=== PATIENT | male | born 1975 | race Caucasian/White ===

== ENCOUNTER 2019-07-30 18:59 | Emergency (ER) | payer BC, SELFPAY ==
[2019-07-30 19:06] VITALS: BP 125/72; PULSE 101; RESP 18; TEMP 37; O2SAT 98
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
--- NOTE | 2019-07-30 20:26 | DI.RAD_ITS ---
EXAM: XR ANKLE RT COMPLETE INDICATION: lateral ankle pain and swelling s/p fall. COMPARISON: No exams were available for comparison TECHNIQUE: 2D digital imaging was performed. FINDINGS: Three views were obtained. There is question of slight widening of the ankle mortise on the AP view. Mortise view is unremarkable. No evidence of fracture. IMPRESSION:
--- NOTE | 2019-07-30 20:50 | DI.VRAD_ITS ---
PROCEDURE INFORMATION: Exam: XR Right Ankle Exam date and time: 07/30/2019 8:24 PM Clinical history: 43 years old, male; Injury or trauma; Fall; Initial encounter; Sprain or strain and swelling (edema); Ankle; Right; Bilateral TECHNIQUE: Imaging protocol: XR Right ankle. Views: 3 or more views. COMPARISON: No relevant prior studies available. FINDINGS: Bones/joints: No evidence for acute fracture or dislocation. Soft tissues: Soft tissue swelling right ankle. IMPRESSION: 1. Marked soft tissue swelling. 2. No evidence for acute bony injury. Dictated and Authenticated by: Anca Avalos MD. Ordering:DANILO Ambriz MD
== END 2019-07-30 20:47 | disposition home or self-care (01) ==
PROVIDERS: Emergency Provider Physician Assistant
DX: S93.401A Sprain of unspecified ligament of right ankle, initial encounter (principal); V17.0XXA Pedal cycle driver injured in collision with fixed or stationary object in nontraffic accident, initial encounter
CPT/HCPCS: 29515; 99283; 73610; 99282; E0114; L4361